=== PATIENT | male | born 1995 | race Hispanic/Latino ===

== ENCOUNTER 2019-10-28 18:41 | Emergency (ER) | payer SELFPAY ==
[2019-10-28 20:24] LABS: Absolute Lymphocytes (CBC) 1.9 K/uL (0.7-4.9); Basophils % 0.8 % (0-1.3); Hematocrit 50.8 % (39.6-49.0); Lymphocytes % 17.6 % (15.3-44.8); RBC Red Blood Cell Count 5.63 M/uL (4.33-5.43)
[2019-10-28 20:35] LABS: Potassium 3.8 mmol/L (3.5-5.1)
--- NOTE | 2019-10-28 20:44 | ER ---
Nurse's Notes [facility] Name: Ko Dobson Age: 23 yrs Sex: Male : 1995 Arrival Date: 10/28/2019 Time: 18:48 Bed 11 Private MD: Diagnosis: Irritant contact dermatitis Presentation: 10/27 18:56 Chief complaint: Patient states: Brownish discoloration to skin to right axilla/chest ll1 area for 10 days. Discoloration streaks have gone down right arm into forearm. Streaks of brown noticed right lateral chest. No new creams/ointments. No trauma or falls. Slight pain. No fever. No abscess noted with palpation. Coronavirus screen: Patient denies a cough. Patient denies shortness of breath or difficulty breathing. Patient denies measured and/or subjective temperature greater than 100.4F prior to today's visit. Patient denies travel on a cruise ship or to a country the [facility] currently lists as an affected area. Patient reports contact with known and/or suspected case of COVID-19. Proceed with normal triage. Ebola Screen: Patient denies travel to an Ebola-affected area in the 21 days before illness onset. Initial Sepsis Screen: Does the patient meet any 2 criteria? No. Patient's initial sepsis screen is negative. Risk Assessment: Do you want to hurt yourself or someone else? Patient reports no desire to harm self or others. Onset of symptoms was October 21, 2019. 18:56 Method Of Arrival: Ambulatory ll1 18:56 Acuity: CHARLIE 4 ll1 19:12 Initial Sepsis Screen: Does the patient have a suspected source of infection? No. ll1 Patient's initial sepsis screen is negative. Historical: - Allergies: 18:59 No Known Allergies; ll1 - PSHx: 18:59 None; ll1 - Immunization history:: Adult Immunizations up to date. - Social history:: Smoking status: Patient denies any tobacco usage or history of. Patient/guardian denies using alcohol, street drugs, tobacco products. Screenin:12 Abuse screen: Denies threats or abuse. Nutritional screening: No deficits noted. ll1 Tuberculosis screening: No symptoms or risk factors identified. Fall Risk None identified. Total Lua Fall Scale indicates No Risk (0-24 pts). Assessment: 19:09 General: Appears in no apparent distress. Behavior is calm, cooperative, appropriate ll1 for age. Pain: Complains of pain in right chest/upper arm Pain currently is 3 out of 10 on a pain scale. Quality of pain is described as aching. Neuro: No deficits noted. Derm: Reports brownish skin discoloration to skin of right upper chest for 10 days. Streaks of brown noted down right arm and right chest. No known trauma or falls. No abscess felt. Musculoskeletal: Circulation, motion, and sensation intact. Capillary refill < 3 seconds, Range of motion: intact in all extremities, Tenderness present in right chest with palpation. Injury Description: no known injury. Vital Signs: 18:56 BP 133 / 93; Pulse 90; Resp 17; Temp 98.7; Pulse Ox 98% ; Pain 3/10; ll1 ED Course: 18:48 Patient arrived in ED. mr 18:59 Triage completed. ll1 18:59 Arm band placed on Patient notified of wait time. ll1 19:09 Jazlyn Thurman, RN is Primary Nurse. ll1 19:12 Patient has correct armband on for positive identification. Bed in low position. Call ll1 light in reach. 19:33 Jose Mcmanus PA is PHCP. jr8 19:33 Luis Fernando Beck MD is Attending Physician. jr8 19:55 Inserted saline lock: 22 gauge in left antecubital area, using aseptic technique. Blood ll1 collected. 20:46 No provider procedures requiring assistance completed. IV discontinued, intact, sg bleeding controlled, No redness/swelling at site. Pressure dressing applied. Administered Medications: No medications were administered Outcome: 20:43 Discharge ordered by . jr8 20:46 Discharged to home ambulatory. sg 20:46 Condition: good 20:46 Discharge instructions given to patient, Instructed on discharge instructions, follow up and referral plans. safety practices, Demonstrated understanding of instructions, follow-up care. 20:55 Patient left the ED. sg Signatures: Adriano Bethea RN RN neto Amanda Banks mr Joes Mcmanus PA PA jr8 Jazlyn Thurman, ARIA RN ll1
--- NOTE | 2019-10-28 20:44 | EDPHYS ---
Physician Documentation [facility] Name: Ko Dobson Age: 23 yrs Sex: Male : 1995 Arrival Date: 10/28/2019 Time: 18:48 Bed 11 Private MD: ED Physician Luis Fernando Beck HPI: 10/27 20:15 This 23 yrs old Male presents to ER via Ambulatory with complaints of Arm jr8 Problem. 20:15 Onset: The symptoms/episode began/occurred gradually, 1 week(s) ago. Treatment prior to jr8 arrival includes: no previous treatment. Associated signs and symptoms: The patient has no apparent associated signs or symptoms. Severity of symptoms: At their worst the symptoms were mild, in the emergency department the symptoms are unchanged. The patient has not experienced similar symptoms in the past. The patient has not recently seen a physician. Patient stated that he noticed brown streaking to right chest, shoulder, abdomen, and arm. Had gone to beach recently but does not remember being stung or bit. Denies any pain or itching. Historical: - Allergies: 18:59 No Known Allergies; ll1 - PSHx: 18:59 None; ll1 - Immunization history:: Adult Immunizations up to date. - Social history:: Smoking status: Patient denies any tobacco usage or history of. Patient/guardian denies using alcohol, street drugs, tobacco products. ROS: 20:15 Eyes: Negative for injury, pain, redness, and discharge, ENT: Negative for injury, jr8 pain, and discharge, Neck: Negative for injury, pain, and swelling, Cardiovascular: Negative for chest pain, palpitations, and edema, Respiratory: Negative for shortness of breath, cough, wheezing, and pleuritic chest pain, Abdomen/GI: Negative for abdominal pain, nausea, vomiting, diarrhea, and constipation, Back: Negative for injury and pain, MS/Extremity: Negative for injury and deformity, Neuro: Negative for headache, weakness, numbness, tingling, and seizure. 20:15 Skin: Positive for rash. Exam: 20:15 Eyes: Pupils equal round and reactive to light, extra-ocular motions intact. Lids and jr8 lashes normal. Conjunctiva and sclera are non-icteric and not injected. Cornea within normal limits. Periorbital areas with no swelling, redness, or edema. ENT: Nares patent. No nasal discharge, no septal abnormalities noted. Tympanic membranes are normal and external auditory canals are clear. Oropharynx with no redness, swelling, or masses, exudates, or evidence of obstruction, uvula midline. Mucous membranes moist. Neck: Trachea midline, no thyromegaly or masses palpated, and no cervical lymphadenopathy. Supple, full range of motion without nuchal rigidity, or vertebral point tenderness. No Meningismus. Cardiovascular: Regular rate and rhythm with a normal S1 and S2. No gallops, murmurs, or rubs. Normal PMI, no JVD. No pulse deficits. Respiratory: Lungs have equal breath sounds bilaterally, clear to auscultation and percussion. No rales, rhonchi or wheezes noted. No increased work of breathing, no retractions or nasal flaring. Abdomen/GI: Soft, non-tender, with normal bowel sounds. No distension or tympany. No guarding or rebound. No evidence of tenderness throughout. Back: No spinal tenderness. No costovertebral tenderness. Full range of motion. MS/ Extremity: Pulses equal, no cyanosis. Neurovascular intact. Full, normal range of motion. Neuro: Awake and alert, GCS 15, oriented to person, place, time, and situation. Cranial nerves II-XII grossly intact. Motor strength 5/5 in all extremities. Sensory grossly intact. Cerebellar exam normal. Normal gait. 20:15 Skin: Patient has brown splotches to right dorsal arm with large brown streaking from right anterior chest and shoulder down mid biceps and to right flank and abdomen going to back. Non tender and is not raised . Vital Signs: 18:56 BP 133 / 93; Pulse 90; Resp 17; Temp 98.7; Pulse Ox 98% ; Pain 3/10; ll1 MDM: 19:39 Patient medically screened. jr8 20:40 Data reviewed: vital signs, nurses notes, lab test result(s), and as a result, I will jr8 discharge patient. Data interpreted: Pulse oximetry: on room air is 98 %. Interpretation: normal. 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 20:42 ED course: Labs unremarkable. Recommended he f/u with derm. Will put on steroids. Most jr8 likely a contact derm from the ocean. If worse to come back . 10/27 19:47 Order name: CBC with Diff; Complete Time: 20:44 jr8 10/27 19:47 Order name: Basic Metabolic Panel; Complete Time: 20:40 jr8 10/27 19:47 Order name: IV; Complete Time: 20:19 jr8 10/27 19:47 Order name: Westergren Sedrate; Complete Time: 20:44 jr8 Administered Medications: No medications were administered Disposition: 10/28 00:38 Co-signature as Attending Physician, Luis Fernando Beck MD. [email or web address] Disposition: 10/28/19 20:43 Discharged to Home. Impression: Irritant contact dermatitis. - Condition is Stable. - Discharge Instructions: Contact Dermatitis. - Prescriptions for Hydroxyzine HCl 25 mg Oral Tablet - take 1 tablet by ORAL route every 6 hours As needed; 30 tablet. Prednisone 20 mg Oral Tablet - take 2 tablet by ORAL route once daily for 5 days; 10 tablet. - Medication Reconciliation Form, Thank You Letter, Antibiotic Education, Prescription Opioid Use form. - Follow up: Private Physician; When: 2 - 3 days; Reason: Recheck today's complaints, Continuance of care, Re-evaluation by your physician. - Problem is new. - Symptoms have improved. 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 Impression: Irritant contact dermatitis. sg Condition is Stable. Forms are Medication Reconciliation Form, Thank You Letter, Antibiotic Education, Prescription Opioid Use. Follow up: Private Physician; When: 2 - 3 days; Reason: Recheck today's complaints, Continuance of care, Re-evaluation by your physician. Problem is new. Symptoms have improved. jr8
[2019-10-28 21:28] VITALS: BP 133/93; TEMP 98.7; O2SAT 98
== END 2019-10-28 20:55 | disposition home or self-care (01) ==
LOC: ER 18:41
DX: L24.9 Irritant contact dermatitis, unspecified cause (principal)
CPT/HCPCS: 36415; 80048; 85025; 85652; 99283

== ENCOUNTER 2021-12-24 19:02 | Emergency (ER) | payer SELFPAY ==
--- OUTSIDE RECORDS SUMMARY | 2021-12-24 19:05 | XMS REPORT | Continuity of Care Document ---
:1995 Author Organization [facility] t Address [address] [place] [address] Care Team Providers Name Role Phone Mounika Mclaughlin Attending Clinician [phone] Pcp, Patient Does Not Have A Attending Clinician [phone] [facility] Urgent Attending Clinician Unavailable Unknown, Attending Attending Clinician Unavailable Rohan Snow MD Attending Clinician Esteban Velasquez MD Attending Clinician Doctor Unassigned, [place] Attending Clinician Unavailable Problems Condition Condition Condition Status Onset Resolution Last Treating Co mments Source Name Details Category Date Date Treatment Clinician Date Atopic Atopic Disease Active Overview: Univer s dermatitis dermatitis 6-24 ICD10 it y of and and 00:00: Diagnosis [place] related related 00 Term Medical condition condition 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 Allergies, Adverse Reactions, Alerts Allergy Allergy Status Severity Reaction(s) Onset Inactive Treating Comm ents Source Name Type Date Date Clinician NO KNOWN Drug Active Univers ALLERGIE Class ity of [facility] Social History Social Habit Start Date Stop Date Quantity Comments Source Exposure to Not sure [facility] SARS-CoV-2 (event) Medica l Branch Sex Assigned At [facility] Medical Branch Alcohol intake 2019-11-01 2019-11-01 [facility] 00:00:00 00:00:00 Medical Branch Smoking Status Start Date Stop Date Source Never smoker [facility] Branch Medications Ordered Filled Start Stop Current Ordering Indication Dosage Frequency Signature Comments Components Source Medication Medication Date Date Medication? Clinician (SIG) Name Name methylPREDN Yes follow Univ ers ISolone 7-15 package ity of (MEDROL, 00:00: directions Braulio as TIA,) 4 mg 00 Medical tablets Branch methylPREDN Yes follow Univ ers ISolone 7-15 package ity of (MEDROL, 00:00: directions Braulio as TIA,) 4 mg 00 Medical tablets Branch methylPREDN Yes follow Univ ers ISolone 7-15 package ity of (MEDROL, 00:00: directions Braulio as TIA,) 4 mg 00 Medical tablets Branch methylPREDN Yes follow Univ ers ISolone 7-15 package ity of (MEDROL, 00:00: directions Braulio as TIA,) 4 mg 00 Medical tablets Branch methylPREDN Yes follow Univ ers ISolone 7-15 package ity of (MEDROL, 00:00: directions Braulio as TIA,) 4 mg 00 Medical tablets Branch methylPREDN Yes follow Univ ers ISolone 7-15 package ity of (MEDROL, 00:00: directions Braulio as TIA,) 4 mg 00 Medical tablets Branch methylPREDN Yes follow Univ ers ISolone 7-15 package ity of (MEDROL, 00:00: directions Braulio as TIA,) 4 mg 00 Medical tablets Branch methylPREDN Yes follow [facility] ers ISolone 7-15 package ity of (MEDROL, 00:00: directions Braulio as TIA,) 4 mg 00 Medical tablets Branch clindamycin Yes 300mg Take 1 Cap Univers (CLEOCIN) 6-27 by mouth 4 ity of 300 mg 00:00: (four) [place] capsule 00 times Medical daily. Branch acetaminoph Yes 15mL Take 15 mL Univers en-codeine 6-27 by mouth ity o f (TYLENOL 00:00: every 6 [place] W/CODEINE) 00 (six) Medical 120-12 mg/5 hours as Bran ch mL elixir needed for Pain. proMETHazin Yes 25mg Take 1 Tab Univers e 6-27 by mouth ity of (PHENERGAN) 00:00: every 6 Bra[place] as 25 mg 00 (six) Medical tablet hours as Branch needed for Nausea and Vomiting (N/V). clindamycin Yes 300mg Take 1 Cap Univers (CLEOCIN) 6-27 by mouth 4 ity of 300 mg 00:00: (four) [place] capsule 00 times Medical daily. Branch acetaminoph 2015-0 Yes 15mL Take 15 mL Univers en-codeine 6-27 by mouth ity o f (TYLENOL 00:00: every 6 [place] W/CODEINE) 00 (six) Medical 120-12 mg/5 hours as Bran ch mL elixir needed for Pain. proMETHazin 2015-0 Yes 25mg Take 1 Tab Univers e 6-27 by mouth ity of (PHENERGAN) 00:00: every 6 Bra[place]io as 25 mg 00 (six) Medical tablet hours as Branch needed for Nausea and Vomiting (N/V). clindamycin 2015-0 Yes 300mg Take 1 Cap Univers (CLEOCIN) 6-27 by mouth 4 ity of 300 mg 00:00: (four) [place] capsule 00 times Medical daily. Branch acetaminoph 2015-0 Yes 15mL Take 15 mL Univers en-codeine 6-27 by mouth ity o f (TYLENOL 00:00: every 6 [place] W/CODEINE) 00 (six) Medical 120-12 mg/5 hours as Bran ch mL elixir needed for Pain. proMETHazin 2015-0 Yes 25mg Take 1 Tab Univers e 6-27 by mouth ity of (PHENERGAN) 00:00: every 6 [place] as 25 mg 00 (six) Medical tablet hours as Branch needed for Nausea and Vomiting (N/V). clindamycin 2015-0 Yes 300mg Take 1 Cap Univers (CLEOCIN) 6-27 by mouth 4 ity of 300 mg 00:00: (four) [place] capsule 00 times Medical daily. Branch acetaminoph 2015-0 Yes 15mL Take 15 mL Univers en-codeine 6-27 by mouth ity o f (TYLENOL 00:00: every 6 [place] W/CODEINE) 00 (six) Medical 120-12 mg/5 hours as Bran ch mL elixir needed for Pain. proMETHazin 2015-0 Yes 25mg Take 1 Tab Univers e 6-27 by mouth ity of (PHENERGAN) 00:00: every 6 [place] as 25 mg 00 (six) Medical tablet hours as Branch needed for Nausea and Vomiting (N/V). clindamycin 2015-0 Yes 300mg Take 1 Cap Univers (CLEOCIN) 6-27 by mouth 4 ity of 300 mg 00:00: (four) [place] capsule 00 times Medical daily. Branch acetaminoph 2015-0 Yes 15mL Take 15 mL Univers en-codeine 6-27 by mouth ity o f (TYLENOL 00:00: every 6 [place] W/CODEINE) 00 (six) Medical 120-12 mg/5 hours as Bran ch mL elixir needed for Pain. proMETHazin 2015-0 Yes 25mg Take 1 Tab Univers e 6-27 by mouth ity of (PHENERGAN) 00:00: every 6 [place] as 25 mg 00 (six) Medical tablet hours as Branch needed for Nausea and Vomiting (N/V). clindamycin 2015-0 Yes 300mg Take 1 Cap Univers (CLEOCIN) 6-27 by mouth 4 ity of 300 mg 00:00: (four) [place] capsule 00 times Medical daily. Branch acetaminoph 2015-0 Yes 15mL Take 15 mL Univers en-codeine 6-27 by mouth ity o f (TYLENOL 00:00: every 6 [place] W/CODEINE) 00 (six) Medical 120-12 mg/5 hours as Bran ch mL elixir needed for Pain. clindamycin 2015-0 Yes 300mg Take 1 Cap Univers (CLEOCIN) 6-27 by mouth 4 ity of 300 mg 00:00: (four) [place] capsule 00 times Medical daily. Branch proMETHazin 2015-0 Yes 25mg Take 1 Tab Univers e 6-27 by mouth ity of (PHENERGAN) 00:00: every 6 [place] as 25 mg 00 (six) Medical tablet hours as Branch needed for Nausea and Vomiting (N/V). clindamycin 2015-0 Yes 300mg Take 1 Cap Univers (CLEOCIN) 6-27 by mouth 4 ity of 300 mg 00:00: (four) [place] capsule 00 times Medical daily. Branch acetaminoph 2015-0 Yes 15mL Take 15 mL Univers en-codeine 6-27 by mouth ity o f (TYLENOL 00:00: every 6 [place] W/CODEINE) 00 (six) Medical 120-12 mg/5 hours as Bran ch mL elixir needed for Pain. proMETHazin 2015-0 Yes 25mg Take 1 Tab Univers e 6-27 by mouth ity of (PHENERGAN) 00:00: every 6 [place] as 25 mg 00 (six) Medical tablet hours as Branch needed for Nausea and Vomiting (N/V). acetaminoph 2015-0 Yes 15mL Take 15 mL Univers en-codeine 6-27 by mouth ity o f (TYLENOL 00:00: every 6 [place] W/CODEINE) 00 (six) Medical 120-12 mg/5 hours as Bran ch mL elixir needed for Pain. proMETHazin 2014- Yes 25mg Take 1 Tab Univers e 6-27 by mouth ity of (PHENERGAN) 00:00: every 6 [place] as 25 mg 00 (six) Medical tablet hours as Branch needed for Nausea and Vomiting (N/V). Immunizations Ordered Filled Immunization Date Status Comments [facility] Immunization Name Name Influenza Virus 2014-01-19 Completed Universit y of Vaccine Quad IM 3+ 00:00:00 [facility] Influenza Virus 2014-01-19 Completed Universit y of Vaccine Quad IM 3+ 00:00:00 [facility] Influenza Virus 2014-01-19 Completed Universit y of Vaccine Quad IM 3+ 00:00:00 [facility] Influenza Virus 2014-01-19 Completed Universit y of Vaccine Quad IM 3+ 00:00:00 [facility] Influenza Virus 2014-01-19 Completed Universit y of Vaccine Quad IM 3+ 00:00:00 [facility] Influenza Virus 2014-01-19 Completed Universit y of Vaccine Quad IM 3+ 00:00:00 [facility] Influenza Virus 2014-01-19 Completed Universit y of Vaccine Quad IM 3+ 00:00:00 [facility] Influenza Virus 2014-01-19 Completed Universit y of Vaccine Quad IM 3+ 00:00:00 [facility] Vital Signs Vital Name Observation Time Observation Value Comments Source Systolic blood 2019-10-30 16:48:00 140 mm[Hg] Univer sity of pressure [facility] Diastolic blood 2019-10-30 16:48:00 99 mm[Hg] [facility] [place] [facility] rsity of pressure [facility] Heart rate 2019-10-30 16:48:00 99 /min [facility] Body temperature 2019-10-30 16:48:00 37.17 Sandra [facility] Res[facility] rate 2019-10-30 16:48:00 14 /min [facility] Body height 2019-10-30 16:48:00 182.9 cm [facility] Body weight 2019-10-30 16:48:00 86.183 kg [facility] BMI 2019-10-30 16:48:00 25.77 kg/m2 [facility] [place] Medical [facility] Oxygen saturation in 2019-10-30 16:48:00 100 /min [facility] blood by [facility] Pulse oximetry Branch Procedures Procedure Date / Time Performed Performing Clinician [facility] CONSENT/REFUSAL FOR 2019-10-30 16:40:18 Doctor Unassigned, No Un [facility] DIAGNOSIS AND Name Medical Branch TREATMENT Encounters Start End Encounter Admission Attending Care Care Encounter Source Date/Time Date/Time Type Type Clinicians Facility Department ID 2019-11-01 2019-11-01 Letter Samuel NJLEIGH [id number] 00:00:00 00:00:00 (Out) [facility] [id number]68[facility] [phone] Primary & 370 Specialty Care 2019-11-01 2019-11-01 Telephone Samuel NJLEIGH [id number] Univers 00:00:00 00:00:00 [facility] [id number] ity of [place] [id number] [facility] [id number] [facility] Primary & 370 Branch Specialty Care 2019-11-01 2019-11-01 Letter Samuel NJLEIGH [id number] Univers 00:00:00 00:00:00 (Out) Cséara D HEALTH [id number] ity of [place] 4.2.7.[address] [place] [address] [phone] [facility] Primary & 370 Branch Specialty Care 2019-11-01 2019-11-01 Telephone KARTHIK [id number] 00:00:00 00:00:00 Patient LUZ [id number] Does Not HOSPITAL [id number] Have A [id number] 2019-11-01 2019-11-01 Telephone KARTHIK [id number] Univers 00:00:00 00:00:00 Patient LUZ [id number] it y of Does Not HOSPITAL [id number] A [id number] [facility] 019 Branch 2019-11-01 2019-11-01 Telephone Samuel [facility] [id number] 00:00:00 00:00:00 Alexrichard French HEALTH [id number] [place] [id number] [facility] [id number] Primary & 370 Specialty Care 2019-10-30 2019-10-30 Laboratory Nurse, [facility] Urgent [facility] [id number] Univers 15:38:26 16:01:49 Only Unknown, Attending HEALTH [id number] ity of [place] Rohan Garza [place] [id number] [place] [id number] [facility] Primary & 370 Branch Specialty Care 2019-10-30 2019-10-30 Laboratory Nurse, [facility] [id number] 15:38:26 16:01:49 Only Urgent HEALTH [id number] [place] 4.2.7.2.68[facility] [id number] Primary & 370 Specialty Care 2019-10-30 2019-10-30 [id number] Univers 11:49:47 12:53:00 Esteban Alexandra [id number] i ty of [place] 4.2.7.2.686 [facility] [id number] [facility] 084 Branch 2019-10-30 2019-10-30 Emergency X [facility] ERT [id number] Univers 11:41:00 11:41:00 ity of [facility] 2019-10-30 2019-10-30 Orders Doctor ANGELES [id number] Univers 00:00:00 00:00:00 Only Unassigned, LUZ [id number] ity of [place] [facility] [id number] [facility] [id number] [facility] 009 Branch Results This patient has no known results.
[2021-12-24] MEDS ORDERED: KETOROLAC 30 MG/ML INJ ONE (20:37)
[2021-12-24] MEDS ORDERED: FAMOTIDINE 20 MG/2 ML VIAL IV ONE (20:38)
--- NOTE | 2021-12-24 20:39 | RAD REPORT ---
EXAM DESCRIPTION: RAD - Chest Single View - 12/24/2021 8:32 pm CLINICAL HISTORY: CHEST PAIN Chest pain. COMPARISON: No comparisons FINDINGS: Portable technique limits examination quality. The lungs are grossly clear. The heart is upper limit of normal in size. No displaced fractures. IMPRESSION: No acute intrathoracic process suspected.
--- NOTE | 2021-12-24 21:47 | ER ---
Nurse's Notes [facility] Name: Ko Dobson Age: 26 yrs Sex: Male : 1995 Arrival Date: 12/24/2021 Time: 19:04 Bed Treatment Private MD: Diagnosis: Chest pain, unspecified Presentation: 12/24 19:49 Chief complaint: Patient states: chest pains to left middle chest x1 week. Coronavirus [facility] screen: Vaccine status: Patient reports being unvaccinated. Client denies travel out of the [place] in the last 14 days. Ebola Screen: Patient negative for fever greater than or equal to 101.5 degrees Fahrenheit, and additional compatible Ebola Virus Disease symptoms Patient denies exposure to infectious person. Patient denies travel to an Ebola-affected area in the 21 days before illness onset. Initial Sepsis Screen: Does the patient meet any 2 criteria? No. Patient's initial sepsis screen is negative. Does the patient have a suspected source of infection? No. Patient's initial sepsis screen is negative. Risk Assessment: Do you want to hurt yourself or someone else? Patient reports no desire to harm self or others. 19:49 Method Of Arrival: Ambulatory [facility] 19:49 Acuity: CHARLIE 3 [facility] 21:09 Onset of symptoms was December 24, 2021. j7 Triage Assessment: 19:51 General: Appears in no apparent distress. Behavior is calm, cooperative, appropriate [facility] for age. Pain: Complains of pain in chest. Cardiovascular: No deficits noted. Historical: - Allergies: 19:51 No Known Allergies; [facility] - PMHx: 19:51 None; [facility] - Immunization history:: Adult Immunizations up to date. - Social history:: Smoking status: Patient denies any tobacco usage or history of. Screenin:30 Abuse screen: Denies threats or abuse. Nutritional screening: No deficits noted. jj7 Tuberculosis screening: No symptoms or risk factors identified. Fall Risk None identified. Assessment: 20:30 General: Appears in no apparent distress. comfortable, Behavior is calm, cooperative. jj7 Pain: Complains of pain in chest Pain does not radiate. Pain level that patient reports is acceptable is 6 out of 10 on a pain scale. Pain began gradually. Cardiovascular: Reports chest pain. Vital Signs: 19:49 BP 127 / 91; Pulse 68; Resp 16; Temp 98.4; Pulse Ox 100% ; Weight 86.18 kg; Height 6 5 ft. 0 in. (182.88 cm); Pain 6/10; 19:49 Body Mass Index 25.77 (86.18 kg, 182.88 cm) 5 ED Course: 19:04 Patient arrived in ED. bp1 19:51 Triage completed. jh5 19:51 Arm band placed on right wrist. jh5 19:56 Donato Elam, ARIA is Primary Nurse. as6 20:03 Rock Montalvo PA is PHCP. jmm 20:03 Kurtis Hinkle MD is Attending Physician. m 20:20 EKG done, by ED staff, reviewed by Rock RASHEED. jw7 20:30 Patient has correct armband on for positive identification. Bed in low position. Call jj7 light in reach. Side rails up X 1. Adult w/ patient. Client placed on continuous cardiac and pulse oximetry monitoring. NIBP monitoring applied. 20:30 No provider procedures requiring assistance completed. Inserted saline lock: 20 gauge jj7 in left antecubital area, using aseptic technique. Patient maintains SpO2 saturation greater than 95% on room air. 20:33 Chest Single View XRAY In Process Unspecified. EDMS 22:01 IV discontinued, intact, bleeding controlled, No redness/swelling at site. Pressure as6 dressing applied. Administered Medications: 20:35 Drug: Ketorolac 30 mg Route: IVP; Site: left antecubital; jj7 22:01 Follow up: Response: No adverse reaction as6 20:35 Drug: Pepcid (famotidine) 10 mg Route: IVP; Site: left antecubital; jj7 22:01 Follow up: Response: No adverse reaction as6 Medication: 20:30 VIS not applicable for this client. jj7 Outcome: 21:47 Discharge ordered by . jm 22:01 Discharged to home ambulatory. as6 22:01 Condition: stable 22:01 Discharge instructions given to patient, Instructed on discharge instructions, follow up and referral plans. medication usage, Demonstrated understanding of instructions, follow-up care, medications, Prescriptions given X 3. 22:02 Patient left the ED. as6 Signatures: Dispatcher [employer] EDMS Rock Montalvo PA PA jmm Paniauga, Chitra bp1 Vincent, , RN RN jh5 Donato Elam RN RN as6 Gabriella Parra7 Jay Pickens RN RN jj7
--- NOTE | 2021-12-24 21:48 | EDPHYS ---
Physician Documentation [facility] Name: Ko Dobson Age: 26 yrs Sex: Male : 1995 Arrival Date: 12/24/2021 Time: 19:04 Bed Treatment Private MD: ED Physician Kurtis Hinkle HPI: 12/24 20:09 This 26 yrs old Male presents to ER via Ambulatory with complaints of Chest jmm Pain. 20:09 The patient or guardian reports chest pain that is located primarily in the anterior [facility] chest wall, left. The pain does not radiate. Associated signs and symptoms: Pertinent negatives: abdominal pain, cough, lower extremity pain, lower extremity swelling, palpitations, shortness of breath. The chest pain is described as aching. This is a 26-year-old male with no chronic medical conditions presents emerged part with complaints of left-sided chest pain beginning approximately a week ago. Patient states having similar pain for a longer period of time. Patient does perform strenuous activity at work. Denies shortness of breath. Denies leg swelling. Denies hemoptysis. Pain is worsened when he moves his left arm and with motion.. Historical: - Allergies: 19:51 No Known Allergies; jh5 - PMHx: 19:51 None; [facility] - Immunization history:: Adult Immunizations up to date. - Social history:: Smoking status: Patient denies any tobacco usage or history of. ROS: 20:09 Constitutional: Negative for fever, chills, and weight loss, Respiratory: Negative for jmm shortness of breath, cough, wheezing, and pleuritic chest pain. 20:09 Cardiovascular: Positive for chest pain. 20:09 All other systems are negative. Exam: 20:09 Constitutional: This is a well developed, well nourished patient who is awake, alert, jmm and in no acute distress. Head/Face: atraumatic. Eyes: EOMI, no conjunctival erythema appreciated ENT: Moist Mucus Membranes Neck: Trachea midline, Supple 20:09 Respiratory: Normal respirations, no respiratory distress appreciated Abdomen/GI: Non distended Back: Normal ROM Skin: General appearance color normal MS/ Extremity: Moves all extremities, no obvious deformities appreciated, no edema noted to the lower extremities Neuro: Awake and alert Psych: Behavior is normal, Mood is normal, Patient is cooperative and pleasant 20:09 Chest/axilla: Inspection: normal, Palpation: tenderness, that is mild, of the anterior aspect of left upper chest. 21:39 ECG was reviewed by the Attending Physician. [facility] Vital Signs: 19:49 BP 127 / 91; Pulse 68; Resp 16; Temp 98.4; Pulse Ox 100% ; Weight 86.18 kg; Height 6 5 ft. 0 in. (182.88 cm); Pain 6/10; 19:49 Body Mass Index 25.77 (86.18 kg, 182.88 cm) [facility] MDM: 20:09 Patient medically screened. [facility] 21:45 Data reviewed: vital signs, nurses notes. Counseling: I had a detailed discussion with [facility] the patient and/or guardian regarding: the historical points, exam findings, and any diagnostic results supporting the discharge/admit diagnosis, lab results, radiology results, the need for outpatient follow up, to return to the emergency department if symptoms worsen or persist or if there are any questions or concerns that arise at home. ED course: PERC negative. Patient advised to follow up with pcp and otherwise given strict return precautions. I do not suspect acs. . 12/24 20:09 Order name: Troponin High Sensitivity; Complete Time: 21:29 [facility] 12/24 20:12 Order name: Chest Single View XRAY; Complete Time: 20:40 [facility] 12/24 20:09 Order name: Saline Lock; Complete Time: 21:06 [facility] EC:39 Rate is 62 beats/min. Rhythm is regular. QRS [place] is Normal. LA interval is normal. QRS jmm interval is normal. QT interval is normal. No Q waves. T waves are Normal. No ST changes noted. Reviewed by me. Administered Medications: 20:35 Drug: Ketorolac 30 mg Route: IVP; Site: left antecubital; jj7 22:01 Follow up: Response: No adverse reaction as6 20:35 Drug: Pepcid (famotidine) 10 mg Route: IVP; Site: left antecubital; jj7 22:01 Follow up: Response: No adverse reaction as6 Disposition Summary: 12/24/21 21:47 Discharge Ordered Location: Home [facility] Condition: Stable [facility] Diagnosis - Chest pain, unspecified [facility] Followup: [facility] - With: Private Physician - When: 2 - 3 days - Reason: Recheck today's complaints, Continuance of care, Re-evaluation by your physician Discharge Instructions: - Discharge Summary Sheet [facility] - Nonspecific Chest Pain, Adult [facility] Forms: - Medication Reconciliation Form [facility] - Thank You Letter [facility] - Antibiotic Education [facility] - Prescription Opioid Use [facility] Prescriptions: - Pepcid 20 mg Oral Tablet - take 1 tablet by ORAL route every 12 hours for 10 days; 20 tablet; Refills: 0, [facility] Product Selection Permitted - Medrol (Albin) 4 mg Oral Tablets, Dose Pack - take 1 tablet by ORAL route as directed - follow package instructions; 1 [facility] packet; Refills: 0, Product Selection Permitted - orphenadrine citrate 100 mg Oral Tablet Sustained Release - take 1 tablet by ORAL route 2 times per day As needed; 20 tablet; Refills: 0, [facility] Product Selection Permitted Addendum: 12/27/2021 07:12 Co-signature as Attending Physician, Kurtis Hinkle MD I agree with the assessment and k dr plan of care. Signatures: Dispatcher [employer] [facility] Kurtis Hinkle MD MD kdr Mickail, Joel, PA PA Jessica Washington, RN RN jh5 Jay Pickens RN RN jj7 Donato Elam RN as6
[2021-12-25 12:16] VITALS: BP 127/91; TEMP 98.4; O2SAT 100
--- NOTE | 2021-12-25 17:10 | EKG ---
Test Date: 2021-12-24 Test Time: 19:58:01 Cloth Beamer: TRAMAINE MEASUREMENT RESULTS: Intervals: Rate: 62 SC: 190 QRSD: 84 QT: 392 QTc: 397 [place]: P: 37 SC: 190 QRS: 60 T: 25 INTERPRETIVE STATEMENTS: Normal sinus rhythm Normal ECG No previous ECG available for comparison Electronically Signed On 12-25-21 17:06:45 CDT by Bon Alcantar
== END 2021-12-24 22:02 | disposition home or self-care (01) ==
LOC: ER 19:02
DX: R07.89 Other chest pain (principal)
CPT/HCPCS: 36415; 71045; 84484; 93005; 96374; 96375; 99284

== ENCOUNTER 2022-01-27 21:05 | Emergency (ER) | payer SELFPAY ==
--- OUTSIDE RECORDS SUMMARY | 2022-01-27 21:08 | XMS REPORT | Continuity of Care Document ---
:1995 Author Organization [facility] t Address [address] [place] [address] Care Team Providers Name Role Phone Mounika Mclaughlin Attending Clinician [phone] Pcp, Patient Does Not Have A Attending Clinician [phone] Braulio Bell Urgent Attending Clinician Unavailable Unknown, Attending Attending Clinician Unavailable Rohan Snow MD Attending Clinician Esteban Velasquez MD Attending Clinician Doctor Unassigned, [place] Attending Clinician Unavailable Problems Condition Condition Condition Status Onset Resolution Last Treating Co mments Source Name Details Category Date Date Treatment Clinician Date Atopic Atopic Disease Active Overview: Univer s dermatitis dermatitis 6-24 ICD10 it y of and and 00:00: Diagnosis [place] related related 00 Term Medical condition condition [employer] Utility Allergies, Adverse Reactions, Alerts Allergy Allergy Status Severity Reaction(s) Onset Inactive Treating Comm ents Source Name Type Date Date Clinician NO KNOWN Drug Active [facility] ALLERGIE Class ity of [facility] Social History Social Habit Start Date Stop Date Quantity Comments Source Exposure to Not sure [facility] SARS-CoV-2 (event) Medica l Branch Sex Assigned At [facility] Branch Alcohol intake 2019-11-01 2019-11-01 [facility] 00:00:00 00:00:00 Medical Branch Smoking Status Start Date Stop Date Source Never smoker [facility] Medications Ordered Filled Start Stop Current Ordering [...] ch mL elixir needed for Pain. proMETHazin 2014-0 Yes 25mg Take 1 Tab Univers e 6-27 by mouth ity of (PHENERGAN) 00:00: every 6 Braulio as 25 mg 00 (six) Medical tablet hours as Branch needed for Nausea and Vomiting (N/V). clindamycin 2015-0 Yes 300mg Take 1 Cap Univers (CLEOCIN) 6-27 by mouth 4 ity of 300 mg 00:00: (four) [place] capsule 00 times Medical daily. Branch acetaminoph 2014-0 Yes 15mL Take 15 mL Univers en-codeine 6-27 by mouth ity o f (TYLENOL 00:00: every 6 [place] W/CODEINE) 00 (six) Medical 120-12 mg/5 hours as Bran ch mL elixir needed for Pain. clindamycin 2014-0 Yes 300mg Take 1 Cap Univers (CLEOCIN) 6-27 by mouth 4 ity of 300 mg 00:00: (four) [place] capsule 00 times Medical daily. Branch proMETHazin 2014-0 Yes 25mg Take 1 Tab Univers e 6-27 by mouth ity of (PHENERGAN) 00:00: every 6 Braulio as 25 mg 00 (six) Medical tablet hours as Branch needed for Nausea and Vomiting (N/V). clindamycin 2014-0 Yes 300mg Take 1 Cap Univers (CLEOCIN) [...] ch mL elixir needed for Pain. proMETHazin 2014-0 Yes 25mg Take 1 Tab Univers e 6-27 by mouth ity of (PHENERGAN) 00:00: every 6 Braulio as 25 mg 00 (six) Medical tablet hours as Branch needed for Nausea and Vomiting (N/V). Immunizations Ordered Filled Immunization Date Status Comments [facility] e Immunization Name Name Influenza Virus 2014-01-19 Completed Universit y of Vaccine Quad IM 3+ 00:00:00 [facility] Influenza Virus 2014-01-19 Completed Universit y of Vaccine Quad IM 3+ 00:00:00 [facility] Influenza Virus 2014-01-19 Completed Universit y of Vaccine Quad IM 3+ 00:00:00 [facility] Influenza Virus 2014-01-19 Completed Universit y of Vaccine Quad IM 3+ 00:00:00 [facility] Influenza Virus 2014-01-19 Completed Universit y of Vaccine Quad IM 3+ 00:00:00 [facility] Influenza Virus 2014-01-19 Completed Universit y of Vaccine Quad IM 3+ 00:00:00 [facility] Influenza Virus 2014-01-19 Completed Universit y of Vaccine Quad IM 3+ 00:00:00 [facility] Influenza Virus 2014-01-19 Completed Universit y of Vaccine Quad IM 3+ 00:00:00 [facility] Vital Signs Vital Name Observation Time Observation Value Comments Source Systolic blood 2019-10-30 16:48:00 140 mm[Hg] Univer sity of pressure [facility] Diastolic blood 2019-10-30 16:48:00 99 mm[Hg] Unive rsity of pressure [facility] Heart rate 2019-10-30 16:48:00 99 /min [facility] Body temperature 2019-10-30 16:48:00 37.17 [facility] Res[facility] rate 2019-10-30 16:48:00 14 /min [facility] Body height 2019-10-30 16:48:00 182.9 cm [facility] Body weight 2019-10-30 16:48:00 86.183 kg [facility] BMI 2019-10-30 16:48:00 25.77 kg/m2 [facility] Oxygen saturation in 2019-10-30 16:48:00 100 /min University Arterial blood by [facility] Pulse oximetry Branch Procedures Procedure Date / Time Performed Performing Clinician [facility] CONSENT/REFUSAL FOR 2019-10-30 16:40:18 Doctor Unassigned, No Un [facility] DIAGNOSIS AND Name Medical Branch TREATMENT Encounters Start End Encounter Admission Attending Care Care Encounter Source Date/Time Date/Time Type Type Clinicians Facility Department ID 2019-11-01 2019-11-01 Letter Samuel DELEIGH [id number] 00:00:00 00:00:00 (Out) [facility] [id number] [place] [id number] [id number] Primary & 370 Specialty Care 2019-11-01 2019-11-01 Telephone Samuel DELEIGH [id number] Univers 00:00:00 00:00:00 [facility] HEALTH [id number] ity of [place] [id number] [place] [address] [id number] [facility] Primary & 370 Branch Specialty Care 2019-11-01 2019-11-01 Letter Samuel DELEIGH [id number] Univers 00:00:00 00:00:00 (Out) [facility] [facility] HEALTH [id number] ity of [place] [address] [place] [address] [id number] [facility] Primary & 370 Branch Specialty Care 2019-11-01 2019-11-01 Telephone KARTHIK Harvey [id number] 00:00:00 00:00:00 Patient LUZ [id number] Does Not HOSPITAL [id number] Have A [id number] 2019-11-01 2019-11-01 Telephone KARTHIK Harvey [id number] Univers 00:00:00 00:00:00 Patient LUZ [id number] it y of Does Not HOSPITAL [id number] A [id number] [facility] 019 Branch 2019-11-01 2019-11-[address] [facility] [id number] 00:00:00 00:00:00 Césarmiley French HEALTH [id number] [place] [id number] [facility] [id number] Primary & 370 Specialty Care 2019-10-30 2019-10-30 Laboratory Nurse, [facility] Urgent [facility] [id number] Univers 15:38:26 16:01:49 Only Unknown, Attending HEALTH [id number] ity of Rohan Snow [place] 4.2.7.2.686 [place] [id number] [facility] Primary & 370 Branch Specialty Care 2019-10-30 2019-10-30 Laboratory Nurse, [facility] [id number] 15:38:26 16:01:49 Only Urgent HEALTH [id number] [place] [id number] [id number] Primary & 370 Specialty Care 2019-10-30 2019-10-30 [facility] [id number] Univers 11:49:47 12:53:00 Esteban Alexandra [id number] i ty of [place] 4.2.7.2.686 [facility] [id number] [facility] 084 Branch 2019-10-30 2019-10-[address] [facility] ERT [id number] Univers 11:41:00 11:41:00 ity of [facility] 2019-10-30 2019-10-30 Orders Doctor ANGELES [id number] Univers 00:00:00 00:00:00 Only Unassigned, LUZ [id number] ity of [facility] [id number] [facility] [place] [facility] [phone] [facility] 009 Branch Results This patient has no known results.
[2022-01-27 22:16] LABS: Absolute Lymphocytes (CBC) 3.2 K/uL (0.7-4.9); Hematocrit 46.2 % (39.6-49.0); Lymphocytes % 30.2 % (15.3-44.8); MCV 88.8 fL (80-100); MPV 8.5 fL (7.6-11.3)
[2022-01-27 22:23] LABS: Protime INR 1.11
[2022-01-27 22:36] LABS: Albumin 3.6 g/dL (3.4-5.0); Bilirubin Total 0.3 mg/dL (0.2-1.0); Potassium 4.1 mmol/L (3.5-5.1); Protein, Total 7.5 g/dL (6.4-8.2)
[2022-01-27 23:13] LABS: Urine Blood Negative (Negative); Urine Glucose Negative (Negative); Urine Protein Negative (Negative); Urine Specific Gravity >=1.030 (1.005-1.030); Urine pH 5.5 (5.0-7.0)
--- NOTE | 2022-01-27 23:16 | RAD REPORT ---
EXAM DESCRIPTION: CTAbdomen Pelvis W Contrast - 01/27/2022 11:08 pm CLINICAL HISTORY: Abdominal pain. lowr abd pain, bloody stools COMPARISON: No comparisons TECHNIQUE: Biphasic CT imaging of the abdomen and pelvis was performed with 100 ml non-ionic IV cont rast. All CT scans are performed using dose optimization technique as appropriate and may include automated exposure control or mA/KV adjustment according to patient size. FINDINGS: The lung bases are clear. The liver, spleen, pancreas, adrenal glands and kidneys are within normal limits. No bowel obstruction, free air, free fluid or abscess. Mild rectosigmoid colon thickening is possible , although colon is incompletely distended. The appendix is normal. Mildly prominent lymph nodes are seen in the right lower quadrant, the largest measuring 11 mm. No suspicious bony findings. IMPRESSION: Mild rectosigmoid colon thickening is suggested which could indicate colitis. Direct vis ualization may be considered with follow-up colonoscopy.
[2022-01-27] MEDS ORDERED: METRONIDAZOLE 500mg IVPB 500 MG/100 ML BAG IV ONE (23:30)
[2022-01-27] MEDS ORDERED: CIPROFLOXACIN 400mg IV 400 MG/200 ML BAG IV ONE (23:30)
--- NOTE | 2022-01-27 23:50 | ER ---
Nurse's Notes [facility] Name: Ko Dobson Age: 26 yrs Sex: Male : 1995 Arrival Date: 01/27/2022 Time: 21:09 Bed 6 Private MD: Diagnosis: Left sided colitis with rectal bleeding Presentation: 01/27 21:48 Chief complaint: Patient states: I have been having bright red bloody stools. I have kd3 been feeling bad since Thursday. Today i went to the restroom and i had bright red stools. Coronavirus screen: Vaccine status: Patient reports being unvaccinated. Ebola Screen: No symptoms or risks identified at this time. 21:48 Method Of Arrival: Ambulatory kd3 21:51 Initial Sepsis Screen: Does the patient meet any 2 criteria? No. Patient's initial kd3 sepsis screen is negative. Does the patient have a suspected source of infection? No. Patient's initial sepsis screen is negative. Risk Assessment: Do you want to hurt yourself or someone else? Patient reports no desire to harm self or others. Onset of symptoms was January 27, 2022. 21:51 Acuity: CHARLIE 3 kd3 Triage Assessment: 21:51 General: Appears in no apparent distress. Behavior is calm, cooperative. Pain: kd3 Complains of pain in abdomen and headache. Neuro: Level of Consciousness is awake, alert, obeys commands, Oriented to person, place, time, situation. GI: Reports rectal bleeding, bloody stool. Historical: - Allergies: 21:51 No Known Allergies; kd3 - Home Meds: 21:51 None [Active]; kd3 - PMHx: 21:51 None; kd3 - Immunization history:: Adult Immunizations not up to date. - Social history:: Smoking status: Patient denies any tobacco usage or history of. - Family history:: not pertinent. - Hospitalizations: : No recent hospitalization is reported. Screenin:52 Abuse screen: Denies threats or abuse. Denies injuries from another. Nutritional kd3 screening: No deficits noted. Tuberculosis screening: No symptoms or risk factors identified. Fall Risk None identified. Assessment: 23:17 General: Appears in no apparent distress. Behavior is calm, cooperative. Pain: as6 Complains of pain in abdomen. Neuro: Level of Consciousness is awake, alert, obeys commands, Reports headache. Respiratory: Respiratory effort is even, unlabored. GI: Reports lower abdominal pain, upper abdominal pain, diarrhea, bloody stool. 23:37 General: Reports "My pain goes in and out, but I am doing alright at the moment.". tw5 23:51 General: discharge pending completion of abx. as6 23:55 Reassessment: Patient states feeling better. Patient states symptoms have improved. tw5 Vital Signs: 21:48 BP 142 / 93; Pulse 78; Resp 17; Temp 98.3(O); Pulse Ox 100% on R/A; Weight 88.45 kg; kd3 Height 6 ft. (182.88 cm); 23:18 BP 145 / 87; Pulse 74; Resp 18 S; Pulse Ox 100% on R/A; as6 23:37 BP 143 / 92; Pulse 73; Resp 18; Pulse Ox 100% on R/A; tw5 21:48 Body Mass Index 26.45 (88.45 kg, 182.88 cm) kd3 ED Course: 21:09 Patient arrived in ED. jj6 21:18 Shellie Matson FNP-C is PHCP. snw 21:18 Terry Chambers MD is Attending Physician. snw 21:51 Triage completed. kd3 21:52 Arm band placed on right wrist. kd3 21:52 Patient has correct armband on for positive identification. kd3 21:52 No provider procedures requiring assistance completed. kd3 23:07 Donato Elam, ARIA is Primary Nurse. as6 23:10 CT Abd/Pelvis - IV Contrast Only In Process Unspecified. EDMS 23:18 Inserted saline lock: 20 gauge in left antecubital area, using aseptic technique. Blood as6 collected. 23:37 Pulse ox on. NIBP on. Door closed. Noise minimized. Moved to private room. Verbal tw5 reassurance given. 01/28 01:12 IV discontinued, intact, bleeding controlled, No redness/swelling at site. Pressure tw5 dressing applied. Administered Medications: 01/27 23:36 Drug: Flagyl (metroNIDAZOLE) 500 mg Volume: 100 ml; Route: IVPB; Rate: 200 ml/hr; tw5 Infused Over: 30 mins; Site: left antecubital; 01/28 01:13 Follow up: IV Status: Completed infusion tw5 00:09 Drug: Cipro (ciprofloxacin) 400 mg Volume: 200 ml; Route: IVPB; Infused Over: 60 mins; Site: left antecubital; 01:13 Follow up: Response: No adverse reaction; IV Status: Completed infusion Medication: 01/27 21:52 VIS not applicable for this client. kd3 Outcome: 23:50 Discharge ordered by . rn 23:55 Discharged to home ambulatory, with family. 23:55 Condition: improved 23:55 Discharge instructions given to patient, Instructed on discharge instructions, follow up and referral plans. medication usage, Demonstrated understanding of instructions, follow-up care, medications, Prescriptions given X 2. 01/28 01:14 Patient left the ED. Signatures: Dispatcher [employer] EDMS Shellie Matson, FINISH REPAIR WORKER-C FINISH REPAIR WORKER-Csnw Terry Chambers MD MD rn Wood, Tiffany tw5 Sultana Raines Ashby, RN RN as6 Ekaterina Rodrigues RN RN kd3
--- NOTE | 2022-01-27 23:50 | EDPHYS ---
Physician Documentation [facility] Name: Ko Dobson Age: 26 yrs Sex: Male : 1995 Arrival Date: 01/27/2022 Time: 21:09 Bed 6 Private MD: ED Physician Terry Chambers HPI: 01/27 21:40 This 26 yrs old Male presents to ER via Unassigned with complaints of Bloody rn Stools, abd pain. 21:40 The patient presents with abdominal pain right lower quadrant, in the left lower rn quadrant. Onset: The symptoms/episode began/occurred 2 day(s) ago. The symptoms do not radiate. Associated signs and symptoms: Pertinent positives: blood in stools, diarrhea, Pertinent negatives: nausea and vomiting, chest pain, testicular pain, vomiting blood. The symptoms are described as crampy, intermittent, sharp. Modifying factors: The symptoms are alleviated by nothing, the symptoms are aggravated by touching the area. Severity of pain: At its worst the pain was moderate in the emergency department the pain is unchanged. The patient has not experienced similar symptoms in the past. The patient has not recently seen a physician. Pt reports lower abd pain and bloody stools for 2 days. Not on blood thinners. + low grade fever and myalgias. . Historical: - Allergies: 21:51 No Known Allergies; kd3 - Home Meds: 21:51 None [Active]; kd3 - PMHx: 21:51 None; kd3 - Immunization history:: Adult Immunizations not up to date. - Social history:: Smoking status: Patient denies any tobacco usage or history of. - Family history:: not pertinent. - Hospitalizations: : No recent hospitalization is reported. 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 Exam: 21:40 Constitutional: This is a well developed, well nourished patient who is awake, alert, rn and in no acute distress. Ambulatory to room without difficulty or assistance. Head/Face: Normocephalic, atraumatic. Eyes: Normal conjunctivae Cardiovascular: Regular rate and rhythm. No pulse deficits. Respiratory: No increased work of breathing, no retractions or nasal flaring. Abdomen/GI: soft, + mild LLQ and RLQ tenderness, no rebound Skin: Warm, dry MS/ Extremity: Pulses equal, no cyanosis. Neuro: Awake and alert, GCS 15 Vital Signs: 21:48 BP 142 / 93; Pulse 78; Resp 17; Temp 98.3(O); Pulse Ox 100% on R/A; Weight 88.45 kg; kd3 Height 6 ft. (182.88 cm); 23:18 BP 145 / 87; Pulse 74; Resp 18 S; Pulse Ox 100% on R/A; as6 23:37 BP 143 / 92; Pulse 73; Resp 18; Pulse Ox 100% on R/A; tw5 21:48 Body Mass Index 26.45 (88.45 kg, 182.88 cm) kd3 MDM: 21:39 Patient medically screened. rn 23:48 Differential diagnosis: diverticulitis, GI Bleed, non-specific abd pain, colitis, rn internal hemorrhoid, flu. Data reviewed: vital signs, nurses notes, lab test result(s), radiologic studies, CT scan, and as a result, I will discharge patient. Counseling: I had a detailed discussion with the patient and/or guardian regarding: the historical points, exam findings, and any diagnostic results supporting the discharge/admit diagnosis, lab results, radiology results, the need for outpatient follow up, to return to the emergency department if symptoms worsen or persist or if there are any questions or concerns that arise at home. Special discussion: Based on the patient's Hx, exam, and Dx evaluation, there is no indication for emergent surgery or inpatient Tx. It is understood by the patient/guardian that if the Sx's persist or worsen they need to return immediately for re-evaluation. I discussed with the patient/guardian in detail that at this point there is no indication for admission to the hospital. It is understood, however, that if the symptoms persist or worsen the patient needs to return immediately for re-evaluation. Based on the history and exam findings, there is no indication for further emergent testing or inpatient evaluation. I discussed with the patient/guardian the need to see the primary care provider for further evaluation of the symptoms. 01/27 21:38 Order name: CBC with Diff; Complete Time: 23:04 rn 01/27 21:38 Order name: CMP; Complete Time: 23:04 rn 01/27 21:38 Order name: Lipase; Complete Time: 23: rn 01/27 21:38 Order name: Flu; Complete Time: 23: rn 01/27 21:39 Order name: Protime (+inr); Complete Time: 23: rn 01/27 21:39 Order name: Ptt, Activated; Complete Time: 23: rn 01/27 21:38 Order name: CT Abd/Pelvis - IV Contrast Only; Complete Time: 23:22 rn 01/27 21:38 Order name: IV Saline Lock; Complete Time: 23: rn 01/27 21:38 Order name: Labs collected and sent; Complete Time: 23: rn 01/27 23:13 Order name: Urine Dipstick-Ancillary; Complete Time: 23:22 EDMS Administered Medications: 23:36 Drug: Flagyl (metroNIDAZOLE) 500 mg Volume: 100 ml; Route: IVPB; Rate: 200 ml/hr; tw5 Infused Over: 30 mins; Site: left antecubital; 01/28 01:13 Follow up: IV Status: Completed infusion tw5 00:09 Drug: Cipro (ciprofloxacin) 400 mg Volume: 200 ml; Route: IVPB; Infused Over: 60 mins; tw5 Site: left antecubital; 01:13 Follow up: Response: No adverse reaction; IV Status: Completed infusion tw5 Disposition Summary: 01/27/22 23:50 Discharge Ordered Location: Home rn Problem: new rn Symptoms: have improved rn Condition: Stable rn Diagnosis - Left sided colitis with rectal bleeding rn Followup: rn - With: Private Physician - When: As needed - Reason: Recheck today's complaints, Re-evaluation by your physician Discharge Instructions: - Discharge Summary Sheet rn - Rectal Bleeding rn - Colitis rn Forms: - Work release form bb - Medication Reconciliation Form rn - Thank You Letter rn - 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
[2022-01-28 01:37] VITALS: TEMP 98.3; O2SAT 100
[2022-01-28 01:54] VITALS: BP 143/92
== END 2022-01-28 01:14 | disposition home or self-care (01) ==
LOC: ER 21:05
DX: K51.511 Left sided colitis with rectal bleeding (principal)
CPT/HCPCS: 36415; 74177; 80053; 81003; 83690; 85025; 85610; 85730; 87804; 96365; 99284; J0744; Q9967